=== PATIENT | male | born 1990 | race African-American/Black ===

== ENCOUNTER 2017-07-15 07:58 | Day surgery (SDC) | payer BC ==
[2017-07-15 08:47] LABS: Basophils % (Auto) 0.7 % (0.0-1.8); Eosinophils % (Auto) 0.5 % (0.0-4.3); Hematocrit 38.9 % (35.5-45.6); Hemoglobin 12.6 gm/dl (11.8-15.2); Mean Corpuscular HGB Conc 33 % (32-34); Mean Corpuscular Volume 78 fl (84-94); Platelet Count 223 K/mm3 (140-440); Red Blood Count 4.98 M/mm3 (3.65-5.03); Red Cell Distribution Width 13.5 % (13.2-15.2); White Blood Count 17.2 K/mm3 (4.5-11.0)
[2017-07-15 08:48] LABS: Mean Corpuscular Hemoglobin 25 pg (28-32)
[2017-07-15 09:01] LABS: INR 0.86 (0.87-1.13)
[2017-07-15 09:40] LABS: Partial Thromboplastin Time 25.8 Sec. (24.2-36.6)
[2017-07-15] MEDS ORDERED: VERSED IV ONE ×2 (09:48→11:00)
[2017-07-15] MEDS ORDERED: SUBLIMAZE ONE (09:49)
[2017-07-15] MEDS ORDERED: SUBLIMAZE IV ONE (11:00)
[2017-07-15] MEDS ORDERED: APRESOLINE IV ONE (11:00)
[2017-07-15] MEDS ORDERED: APRESOLINE ONE (11:01)
--- NOTE | 2017-07-15 13:16 | Cat Scan Report ---
CT-guided renal biopsy. History: Abnormal renal function studies. Procedure: The patient was placed in the prone position. The skin surface overlying the left flank was prepped and draped using sterile technique. Local anesthetic was injected into the skin. Using CT guidance, a 17-gauge sheath needle was advanced into the lower pole cortex of the left kidney. 2 passes were made using an 18-gauge biopsy gun. Adequate tissue cores were obtained. Postbiopsy images demonstrated a small subcapsular hematoma with a maximum diameter of 1.2 cm. A small pararenal hematoma is also present. Intravenous conscious sedation was used. Intraservice time was 30 minutes. Independent cardiorespiratory monitoring was performed by the outpatient procedure nurse for 30 minutes, supervised by me. The patient was placed on complete bed rest for 6 hours and sent to the outpatient procedure unit in satisfactory condition.
--- NOTE | 2017-07-15 16:40 | Short Stay Summary ---
Short Stay Documentation Date of service: 07/15/17 - History Principal diagnosis: Abnormal renal function Past Medical History: hypertension - Allergies and Medications Current Medications: Allergies No Known Allergies Allergy (Verified 07/15/17 09:11) Home Medications Medication Instructions Recorded Confirmed Last Taken Type Atenolol 50 mg PO DAILY 10/22/13 07/15/17 07/14/17 History Atorvastatin Calcium [Lipitor] 20 mg PO HS 10/22/13 07/15/17 07/14/17 History Lisinopril 10 mg PO DAILY 10/22/13 07/15/17 07/14/17 History Amlodipine Besylate [Amlodipine 10 mg PO QDAY 07/15/17 07/15/17 07/14/17 History Besylate] Ergocalciferol [Vitamin D2] 1 cap PO QWEEK 07/15/17 07/15/17 07/12/17 History [place]-3/Dha/Epa/Fish Oil [Fish Oil 1 each PO QDAY 07/15/17 07/15/17 07/14/17 History 1,200 mg Softgel] Ranitidine HCl [Zantac 300 MG TAB] 300 mg PO HS 07/15/17 07/15/17 07/14/17 History Sodium Polystyrene Sulfonate 60 ml PO QWEEK 07/15/17 07/15/17 07/13/17 History [Sodium Polystyrene Sulfonate] Tacrolimus [Prograf] 2 mg PO Q12H 07/15/17 07/15/17 07/14/17 History predniSONE [Deltasone] 10 mg PO QDAY 07/15/17 07/15/17 07/14/17 History - Physical exam General appearance: no acute distress - Brief post op/procedure progress note Date of procedure: 07/15/17 Pre-op diagnosis: Decreased renal function Post-op diagnosis: same Procedure: Renal biopsy Anesthesia: local Surgeon: GREYSON BURNHAM Estimated blood loss: none Specimen disposition: to lab Condition: stable - Disposition Condition at discharge: Good Disposition: [id number]-01 TO HOME OR SELFCARE Short Stay Discharge Plan Follow up with: CHRIS BOCANEGRA MD [Primary Care Provider] - 7 Days Forms: Work/School Excuse Out Patient, Post Sedation D/C Instructions
[2017-07-15 17:43] VITALS: BP 146/91
== END 2017-07-15 18:00 | disposition home or self-care (01) ==
LOC: CATHLABREC 07:58 → EDSTATUS 08:30 → CATHLABREC 18:00
PROVIDERS: ATTEND Internal Medicine Nephrology
DX: N05.1 Unspecified nephritic syndrome with focal and segmental glomerular lesions (principal); R94.4 Abnormal results of kidney function studies; I10 Essential (primary) hypertension; Z79.01 Long term (current) use of anticoagulants
CPT/HCPCS: 36415; 50200; 77012; 85025; 85610; 85730; 88313; 88346; 88348; 96374; J0360; J2250; J3010